=== PATIENT | male | born 1995 ===

== ENCOUNTER 2018-12-14 22:05 | Emergency (ER) | payer BC, MEDICAID ==
[2018-12-14 22:09] VITALS: BP 127/69; TEMP 98
--- NOTE | 2018-12-14 23:37 | ED PDOC ---
HPI: Psych/Substance Abuse Time Seen by Provider: 12/14/18 22:24 Chief Complaint (Nursing): Psychiatric Evaluation Chief Complaint (Provider): Psychiatric Evaluation History Per: Patient History/Exam Limitations: no limitations Onset/Duration Of Symptoms: Hrs (3x) Current Symptoms Are (Timing): Still Present Severity: Moderate Associated Symptoms: Suicidal Thoughts, Other (homidical ideation) Additional Complaint(s): 22 year old / male with no pertinent past medical history presents to the ED for a psychiatric evaluation after expressing suicidal ideation and homicidal ideation 3x hours prior to arrival in a verbal altercation with his mother. Patient was seen in the [facility] ED earlier today, but not for the same complaint. Patient was seen for sciatic pain and discharged home. Patient denies having a history of prior psychiatric issues, but for the past 2x years, he has had severe familiar conflict, causing him severe stress at times. Patient denies having a plan to hurt himself or others. PMD: Hardeep Martin MD Past Medical History Reviewed: Historical Data, Nursing Documentation, Vital Signs Vital Signs: Last Vital Signs Temp 98.0 F 12/14/18 22:07 Pulse 110 H 12/14/18 22:07 Resp 16 12/14/18 22:07 BP 127/69 12/14/18 22:07 Pulse Ox 98 12/14/18 22:07 JO Report Viewed: Yes - Medical History Other PMH: sciatica - Surgical History Surgical History: No Surg Hx - Family History Family History: States: No Known Family Hx - Social History Current smoker - smoking cessation education provided: No Alcohol: None Drugs: Denies - Allergies Allergies/Adverse Reactions: Allergies Allergy/AdvReac Type Severity Reaction Status Date / Time No Known Allergies Allergy Verified 12/14/18 22:07 Review of Systems ROS Statement: Except As Marked, All Systems Reviewed And Found Negative Psych: Positive for: Suicidal ideation, Other (homicidal ideation) Physical Exam - Reviewed Nursing Documentation Reviewed: Yes Vital Signs Reviewed: Yes - Physical Exam Appears: Positive for: Well, Non-toxic, No Acute Distress Head Exam: Positive for: ATRAUMATIC, NORMOCEPHALIC Skin: Positive for: Normal Color, Warm, Dry Eye Exam: Positive for: Normal appearance Cardiovascular/Chest: Positive for: Regular Rate, Rhythm Respiratory: Positive for: Normal Breath Sounds Neurological/Psych: Positive for: Awake, Alert, Oriented (3x), Mood/Affect ( calm, cooperative) - ECG O2 Sat by Pulse Oximetry: 98 (RA) Pulse Ox Interpretation: Normal Medical Decision Making Medical Decision Makin:24 Initial impression: 22 year old male with suicidal and homicidal ideation insetting of familial strife. Initial plan: * crisis evaluation * 1:1 observation * reevaluation 1:50 Patient evaluated by crisis, patient cleared for discharge home. Counseling was provided and all questions were answered regarding diagnosis and need for follow up with PMD. There is agreement to discharge plan. Return if symptoms persist or worsen. ScribeAttestation: Documented byMel Sanz, acting as a scribe for Fuad Cardona MD. Provider ScribeAttestation: All medical record entries made by the Scribe were at my direction and personally dictated by me. I have reviewed the chart and agree that the record accurately reflects my personal performance of the history, physical exam, medical decision making, and the department course for this patient. I have also personally directed, reviewed, and agree with the discharge instructions and disposition. Disposition - Clinical Impression Clinical Impression: Adjustment disorder - Disposition Disposition: Routine/Home Disposition Time: 01:50 Condition: STABLE Instructions: Adjustment Disorder Forms: [place] ([place])
[2018-12-15 02:35] VITALS: PULSE 80; RESP 17
[2018-12-17 20:40] VITALS: O2SAT 98
== END 2018-12-15 02:05 | disposition home or self-care (01) ==
LOC: H.ER 22:05
DX: R45.851 Suicidal ideations (principal); R45.850 Homicidal ideations; Z00.8 Encounter for other general examination